=== PATIENT | male | born 1965 | race Caucasian/White ===

== ENCOUNTER → 2016-08-27 | Outpatient (REF) | payer OTHER ==
[2016-08-27 12:21] LABS: MEAN CORPUSCULAR HEMOGLOBIN 32.9 pg (27.0-33.0); MEAN CORPUSCULAR HGB CONC 33.8 g/dl (32.0-36.5); MEAN CORPUSCULAR VOLUME 97.3 fl (80.0-96.0); RED CELL DISTRIBUTION WIDTH 12.2 % (11.5-14.5); WHITE BLOOD COUNT 5.7 K/mm3 (4.0-10.0)
[2016-08-27 12:31] LABS: ALBUMIN 3.9 GM/DL (3.2-5.2); ALBUMIN/GLOBULIN RATIO 1.18 (1.00-1.93); ALKALINE PHOSPHATASE 80 U/L (45-117); ALT/SGPT 31 U/L (12-78); ANION GAP 4 MEQ/L (8-16); AST/SGOT 16 U/L (15-37); BILIRUBIN,TOTAL 0.3 MG/DL (0.2-1.0); BLOOD UREA NITROGEN 13 MG/DL (7-18); CALCIUM LEVEL 8.8 MG/DL (8.5-10.1); CARBON DIOXIDE LEVEL 28 MEQ/L (21-32); CHLORIDE LEVEL 107 MEQ/L (98-107); CHOLESTEROL LEVEL 184 MG/DL (<200); CREATININE FOR GFR 0.71 MG/DL (0.70-1.30); GLOMERULAR FILTRATION RATE > 60.0 (>56); GLUCOSE, FASTING 106 MG/DL (70-105); POTASSIUM SERUM 4.6 MEQ/L (3.5-5.1); SODIUM LEVEL 139 MEQ/L (136-145); TOTAL PROTEIN 7.2 GM/DL (6.4-8.2); TRIGLYCERIDES LEVEL 130 MG/DL (<150)
== END ==
LOC: M SFHCADAM 07:59
PROVIDERS: ATTEND Physician Assistant
DX: E78.4 Other hyperlipidemia (principal); E55.9 Vitamin D deficiency, unspecified

== ENCOUNTER → 2017-07-08 | Outpatient (REF) | payer OTHER ==
[2017-07-08 19:37] LABS: APPEARANCE, URINE HAZY (CLEAR); BACTERIA, URINE AUTO NEGATIVE (NEGATIVE); BILIRUBIN, URINE AUTO NEGATIVE (NEGATIVE); BLOOD, URINE BLOOD 1+ (NEGATIVE); CALCIUM OXALATE CRYSTALS SMALL; COLOR, URINE YELLOW (YELLOW); GLUCOSE, URINE (UA) AUTO NEGATIVE (NEGATIVE); KETONE, URINE AUTO NEGATIVE (NEGATIVE); LEUKOCYTE ESTERASE, URINE AUTO NEGATIVE (NEGATIVE); MUCUS, URINE SMALL (NEGATIVE); NITRITE, URINE AUTO NEGATIVE (NEGATIVE); PROTEIN, URINE AUTO NEGATIVE (NEGATIVE); RBC, URINE AUTO 3 /HPF (0-3); SPECIFIC GRAVITY URINE AUTO 1.023 (1.002-1.035); SQUAMOUS EPITHELIAL CELL UR AU 0 /HPF (0-6); WBC, URINE AUTO 0 /HPF (0-3)
== END ==
LOC: M SFHCADAM 18:20
DX: R58 Hemorrhage, not elsewhere classified (principal)

== ENCOUNTER → 2017-07-08 | Outpatient (REF) | payer OTHER ==
[2017-07-08 18:48] LABS: HEMATOCRIT 42.2 % (42.0-52.0); HEMOGLOBIN 14.6 g/dl (13.5-17.5); MEAN CORPUSCULAR HEMOGLOBIN 32.3 pg (27.0-33.0); MEAN CORPUSCULAR HGB CONC 34.6 g/dl (32.0-36.5); MEAN CORPUSCULAR VOLUME 93.4 fl (80.0-96.0); PLATELET COUNT, AUTOMATED 224 10^3/uL (150-450); RED BLOOD COUNT 4.52 10^6/uL (4.30-6.10); RED CELL DISTRIBUTION WIDTH 12.1 % (11.5-14.5); WHITE BLOOD COUNT 8.1 10^3/uL (4.0-10.0)
[2017-07-08 19:41] LABS: ALBUMIN 4.1 GM/DL (3.2-5.2); ALBUMIN/GLOBULIN RATIO 1.21 (1.00-1.93); ALKALINE PHOSPHATASE 89 U/L (45-117); ALT/SGPT 30 U/L (12-78); ANION GAP 7 MEQ/L (8-16); AST/SGOT 20 U/L (7-37); BILIRUBIN,TOTAL 0.2 MG/DL (0.2-1.0); BLOOD UREA NITROGEN 14 MG/DL (7-18); CALCIUM LEVEL 8.8 MG/DL (8.5-10.1); CARBON DIOXIDE LEVEL 27 MEQ/L (21-32); CHLORIDE LEVEL 107 MEQ/L (98-107); CREATININE FOR GFR 0.73 MG/DL (0.70-1.30); GLOMERULAR FILTRATION RATE > 60.0 (>56); GLUCOSE, FASTING 119 MG/DL (70-100); POTASSIUM SERUM 3.9 MEQ/L (3.5-5.1); SODIUM LEVEL 141 MEQ/L (136-145); TOTAL PROTEIN 7.5 GM/DL (6.4-8.2)
== END ==
LOC: M SFHCADAM 15:22
DX: R58 Hemorrhage, not elsewhere classified (principal); R10.2 Pelvic and perineal pain

== ENCOUNTER → 2017-07-14 | Outpatient (CLI) | payer OTHER ==
[~2017-07-14] MED LIST: ISOVUE-370 76% 100ML VIAL (Q9967) As Ordered
== END ==
LOC: M RAD 16:25
DX: R58 Hemorrhage, not elsewhere classified (principal); R10.2 Pelvic and perineal pain; K76.89 Other specified diseases of liver; K57.90 Diverticulosis of intestine, part unspecified, without perforation or abscess without bleeding
CPT/HCPCS: Q9967

== ENCOUNTER → 2017-09-01 | Outpatient (REF) | payer OTHER ==
[2017-09-01 12:56] LABS: HEMATOCRIT 45.5 % (42.0-52.0); HEMOGLOBIN 15.6 g/dl (13.5-17.5); MEAN CORPUSCULAR HEMOGLOBIN 31.9 pg (27.0-33.0); MEAN CORPUSCULAR HGB CONC 34.3 g/dl (32.0-36.5); PLATELET COUNT, AUTOMATED 235 10^3/uL (150-450); RED BLOOD COUNT 4.89 10^6/uL (4.30-6.10); RED CELL DISTRIBUTION WIDTH 12.1 % (11.5-14.5); WHITE BLOOD COUNT 6.9 10^3/uL (4.0-10.0)
[2017-09-01 13:35] LABS: ALBUMIN 4.2 GM/DL (3.2-5.2); ALKALINE PHOSPHATASE 86 U/L (45-117); ALT/SGPT 34 U/L (12-78); ANION GAP 6 MEQ/L (8-16); AST/SGOT 16 U/L (7-37); BILIRUBIN,TOTAL 0.5 MG/DL (0.2-1.0); BLOOD UREA NITROGEN 14 MG/DL (7-18); CALCIUM LEVEL 8.9 MG/DL (8.5-10.1); CARBON DIOXIDE LEVEL 28 MEQ/L (21-32); CHLORIDE LEVEL 107 MEQ/L (98-107); CHOLESTEROL LEVEL 222 MG/DL (<200); CHOLESTEROL RISK RATIO 5.414 (<5); CREATININE FOR GFR 0.77 MG/DL (0.70-1.30); GLOMERULAR FILTRATION RATE > 60.0 (>56); GLUCOSE, FASTING 93 MG/DL (70-100); HDL CHOLESTEROL 41 MG/DL (>40); LDL CHOLESTEROL 140.6 MG/DL (<100); NON-HDL-C 181 MG/DL; POTASSIUM SERUM 4.3 MEQ/L (3.5-5.1); PSA SCREENING 0.53 NG/ML (< 4.0); SODIUM LEVEL 141 MEQ/L (136-145); TOTAL PROTEIN 7.7 GM/DL (6.4-8.2); TRIGLYCERIDES LEVEL 202 MG/DL (<150)
== END ==
LOC: M SFHCADAM 09:19
DX: E78.4 Other hyperlipidemia (principal); Z12.5 Encounter for screening for malignant neoplasm of prostate

== ENCOUNTER 2017-10-06 07:43 | Day surgery (SDC) | payer OTHER ==
[~2017-10-06 07:43] MED LIST changes: -ISOVUE-370 76% 100ML VIAL (Q9967) As Ordered; +LIDOCAINE 2% INJ 100 MG/5 ML SDV (FOR ANES.) As Ordered; +PROPOFOL 200 MG/20 ML VIAL As Ordered
[2017-10-06] MEDS ORDERED: NS 1,000 ML IV (08:30)
== END 2017-10-06 09:42 | disposition home or self-care (01) ==
LOC: M OPP 07:43
DX: Z12.11 Encounter for screening for malignant neoplasm of colon (principal); Z86.010 Personal history of colon polyps; E78.5 Hyperlipidemia, unspecified; M54.9 Dorsalgia, unspecified; F17.210 Nicotine dependence, cigarettes, uncomplicated; Z79.82 Long term (current) use of aspirin; Z79.899 Other long term (current) drug therapy; Z80.7 Family history of other malignant neoplasms of lymphoid, hematopoietic and related tissues; Z80.41 Family history of malignant neoplasm of ovary
CPT/HCPCS: 45378

== ENCOUNTER → 2018-08-28 | Outpatient (REF) | payer OTHER ==
[~2018-08-28] MED LIST changes: +ASPI81TA26 PO; +ATOR1TAB19 PO; +COQ-100C2 PO; -LIDOCAINE 2% INJ 100 MG/5 ML SDV (FOR ANES.) As Ordered; -PROPOFOL 200 MG/20 ML VIAL As Ordered; +VITA400C7 PO; +VITA500T PO
[2018-08-28 12:53] LABS: HEMATOCRIT 45.6 % (42.0-52.0); HEMOGLOBIN 15.2 g/dl (13.5-17.5); MEAN CORPUSCULAR HEMOGLOBIN 31.3 pg (27.0-33.0); MEAN CORPUSCULAR HGB CONC 33.3 g/dl (32.0-36.5); MEAN CORPUSCULAR VOLUME 93.8 fl (80.0-96.0); PLATELET COUNT, AUTOMATED 217 10^3/uL (150-450); RED BLOOD COUNT 4.86 10^6/uL (4.30-6.10); WHITE BLOOD COUNT 7.1 10^3/uL (4.0-10.0)
[2018-08-28 13:02] LABS: ALBUMIN 4.3 GM/DL (3.2-5.2); ALT/SGPT 30 U/L (12-78); BILIRUBIN,TOTAL 0.3 MG/DL (0.2-1.0); BLOOD UREA NITROGEN 13 MG/DL (7-18); CALCIUM LEVEL 9.2 MG/DL (8.5-10.1); CARBON DIOXIDE LEVEL 24 MEQ/L (21-32); CHLORIDE LEVEL 107 MEQ/L (98-107); CHOLESTEROL LEVEL 209 MG/DL (<200); CREATININE FOR GFR 0.73 MG/DL (0.70-1.30); GLOMERULAR FILTRATION RATE > 60.0 (>56); GLUCOSE, FASTING 103 MG/DL (70-100); HDL CHOLESTEROL 44 MG/DL (>40); LDL CHOLESTEROL 129 MG/DL (<100); NON-HDL-C 165 MG/DL; POTASSIUM SERUM 4.2 MEQ/L (3.5-5.1); SODIUM LEVEL 140 MEQ/L (136-145); TOTAL PROTEIN 7.8 GM/DL (6.4-8.2); TRIGLYCERIDES LEVEL 181 MG/DL (<150)
[2018-08-28 13:26] LABS: TOTAL 25(OH) VITAMIN D 20.8 NG/ML (30.0-100.0)
== END ==
LOC: M SFHCADAM 08:14
PROVIDERS: ATTEND Physician Assistant
DX: F17.200 Nicotine dependence, unspecified, uncomplicated (principal); E78.49 Other hyperlipidemia; E55.9 Vitamin D deficiency, unspecified

== ENCOUNTER → 2018-08-30 | Outpatient (REF) | payer OTHER ==
[2018-08-30 18:58] LABS: CPK CREATINE PHOSPHOKINASE 158 U/L (39-308); RHEUMATOID FACTOR QUANT < 10.0 IU/ML (<15.0)
[2018-09-03 00:06] LABS: ANA (HEP2) Positive (.); Lyme Disease IgG/IgM Antibodie <0.91 ISR (0.00-0.90); Lyme Disease IgM Ab Quantitati <0.80 index (0.00-0.79)
== END ==
LOC: M SFHCADAM 16:25
PROVIDERS: ATTEND Physician Assistant
DX: M79.10 Myalgia, unspecified site (principal)

== ENCOUNTER → 2018-12-20 | Outpatient (REF) | payer OTHER ==
[2018-12-20 16:31] LABS: BASO # 0.1 10^3/uL (0.0-0.2); BASO % 1.1 % (0.0-1.0); EOS # 0.4 10^3/uL (0.0-0.5); EOS % 5.4 % (0.0-3.0); HEMATOCRIT 39.9 % (42.0-52.0); HEMOGLOBIN 13.4 g/dl (13.5-17.5); LYMPH # 2.3 10^3/uL (1.5-5.0); MEAN CORPUSCULAR HEMOGLOBIN 31.4 pg (27.0-33.0); MEAN CORPUSCULAR HGB CONC 33.6 g/dl (32.0-36.5); MEAN CORPUSCULAR VOLUME 93.4 fl (80.0-96.0); MONO # 0.7 10^3/uL (0.0-0.8); MONO % 10.7 % (0.0-5.0); NEUTROPHILS # 3.2 10^3/uL (1.5-8.5); NEUTROPHILS % 48.6 % (36.0-66.0); PLATELET COUNT, AUTOMATED 239 10^3/uL (150-450); RED BLOOD COUNT 4.27 10^6/uL (4.30-6.10); WHITE BLOOD COUNT 6.6 10^3/uL (4.0-10.0)
[2018-12-20 16:52] LABS: ERYTHROCYTE SEDIMENTATION RATE 12 mm/hr (0-20)
[2018-12-20 16:58] LABS: ALBUMIN 4.1 GM/DL (3.2-5.2); ALT/SGPT 36 U/L (12-78); BILIRUBIN,TOTAL 0.4 MG/DL (0.2-1.0); BLOOD UREA NITROGEN 14 MG/DL (7-18); C REACTIVE PROTEIN QUANTITATIV < 0.30 MG/DL (0.00-0.30); CALCIUM LEVEL 9.3 MG/DL (8.5-10.1); CARBON DIOXIDE LEVEL 29 MEQ/L (21-32); CHLORIDE LEVEL 106 MEQ/L (98-107); CREATININE FOR GFR 0.76 MG/DL (0.70-1.30); GLOMERULAR FILTRATION RATE > 60.0 (>56); GLUCOSE, FASTING 83 MG/DL (70-100); POTASSIUM SERUM 4.5 MEQ/L (3.5-5.1); SODIUM LEVEL 141 MEQ/L (136-145); TOTAL PROTEIN 7.6 GM/DL (6.4-8.2)
== END ==
LOC: M SFHCADAM 14:29
PROVIDERS: ATTEND Family Medicine
DX: R53.81 Other malaise (principal); S30.861D Insect bite (nonvenomous) of abdominal wall, subsequent encounter; W57.XXXD Bitten or stung by nonvenomous insect and other nonvenomous arthropods, subsequent encounter

== ENCOUNTER → 2019-02-12 | Outpatient (REF) | payer OTHER ==
[2019-02-12 16:56] LABS: BASO # 0.1 10^3/uL (0.0-0.2); BASO % 0.5 % (0.0-1.0); EOS # 0.2 10^3/uL (0.0-0.5); EOS % 1.3 % (0.0-3.0); HEMATOCRIT 47.9 % (42.0-52.0); HEMOGLOBIN 15.6 g/dl (13.5-17.5); LYMPH # 2.2 10^3/uL (1.5-5.0); MEAN CORPUSCULAR HEMOGLOBIN 31.4 pg (27.0-33.0); MEAN CORPUSCULAR HGB CONC 32.6 g/dl (32.0-36.5); MEAN CORPUSCULAR VOLUME 96.4 fl (80.0-96.0); MONO # 1.4 10^3/uL (0.0-0.8); MONO % 12.5 % (0.0-5.0); NEUTROPHILS # 7.3 10^3/uL (1.5-8.5); NEUTROPHILS % 65.3 % (36.0-66.0); PLATELET COUNT, AUTOMATED 224 10^3/uL (150-450); RED BLOOD COUNT 4.97 10^6/uL (4.30-6.10); WHITE BLOOD COUNT 11.2 10^3/uL (4.0-10.0)
[2019-02-12 17:32] LABS: ALBUMIN 4.2 GM/DL (3.2-5.2); ALT/SGPT 33 U/L (12-78); BILIRUBIN,TOTAL 0.9 MG/DL (0.2-1.0); BLOOD UREA NITROGEN 10 MG/DL (7-18); CALCIUM LEVEL 9.2 MG/DL (8.5-10.1); CARBON DIOXIDE LEVEL 28 MEQ/L (21-32); CHLORIDE LEVEL 101 MEQ/L (98-107); CREATININE FOR GFR 0.77 MG/DL (0.70-1.30); FREE T4 0.87 NG/DL (0.76-1.46); GLOMERULAR FILTRATION RATE > 60.0 (>56); GLUCOSE, FASTING 80 MG/DL (70-100); POTASSIUM SERUM 4.4 MEQ/L (3.5-5.1); SODIUM LEVEL 137 MEQ/L (136-145); THYROID STIMULATING HORMONE 0.845 uIU/ML (0.358-3.740); TOTAL PROTEIN 8.1 GM/DL (6.4-8.2)
== END ==
LOC: M LABDRAW1 15:21 → M LABDRWAD 15:21
PROVIDERS: ATTEND Physician Assistant
DX: R22.1 Localized swelling, mass and lump, neck (principal); R13.10 Dysphagia, unspecified

== ENCOUNTER → 2019-02-12 | Outpatient (CLI) | payer OTHER ==
--- NOTE | 2019-02-12 14:04 | REP ---
Four views neck soft tissues: 02/12/2019. Indication: Neck mass. Comparison: None. Findings: The prevertebral and additional visualized neck soft tissues are unremarkable by this technique. Multilevel cervical spine spondylosis is present most pronounced at C5/C6 and C6/C7. There is a 6 mm rounded partially calcified nodule within the right upper lung. Impression: No soft tissue neck mass or acute soft tissue abnormalities detected. CT neck soft tissues with contrast may be considered if indicated. 6 mm pulmonary nodule within the right lung. Granuloma is considered most likely, however, CT chest may be considered. Electronically Signed by Chucho Means DO 02/12/2019 01:55 P
== END ==
LOC: M ADAMS 13:21
PROVIDERS: ATTEND Physician Assistant
DX: R91.1 Solitary pulmonary nodule (principal); R13.10 Dysphagia, unspecified; R22.1 Localized swelling, mass and lump, neck

== ENCOUNTER → 2019-02-15 | Outpatient (REF) | payer OTHER ==
[2019-02-15 17:13] LABS: BASO # 0.1 10^3/uL (0.0-0.2); BASO % 0.5 % (0.0-1.0); EOS # 0.2 10^3/uL (0.0-0.5); EOS % 2.1 % (0.0-3.0); HEMATOCRIT 43.1 % (42.0-52.0); HEMOGLOBIN 13.9 g/dl (13.5-17.5); LYMPH # 1.9 10^3/uL (1.5-5.0); LYMPH % 19.7 % (24.0-44.0); MEAN CORPUSCULAR HEMOGLOBIN 30.7 pg (27.0-33.0); MEAN CORPUSCULAR HGB CONC 32.3 g/dl (32.0-36.5); MEAN CORPUSCULAR VOLUME 95.1 fl (80.0-96.0); MONO # 1.3 10^3/uL (0.0-0.8); MONO % 13.6 % (0.0-5.0); NEUTROPHILS # 6.2 10^3/uL (1.5-8.5); NEUTROPHILS % 63.7 % (36.0-66.0); PLATELET COUNT, AUTOMATED 243 10^3/uL (150-450); RED BLOOD COUNT 4.53 10^6/uL (4.30-6.10); WHITE BLOOD COUNT 9.7 10^3/uL (4.0-10.0)
== END ==
LOC: M LABDRWAD 16:27
PROVIDERS: ATTEND Physician Assistant
DX: L04.0 Acute lymphadenitis of face, head and neck (principal)

== ENCOUNTER → 2019-02-15 | Outpatient (CLI) | payer OTHER ==
[~2019-02-15] MED LIST changes: +ISOVUE-370 76% 100ML VIAL (Q9967) As Ordered ONE
--- NOTE | 2019-02-15 08:15 | REP ---
Clinical: Dysphagia. Technique: Axial noncontrast images from the thoracic inlet to the upper abdomen with coronal and sagittal re-formations. Findings: The bilateral lung ochoa are well-aerated and clear. No consolidation. No significant nodule or mass lesion. No pleural effusion. No pneumothorax. A calcified granuloma is identified in the right upper lobe. The mediastinum demonstrates atherosclerotic changes to the thoracic aorta without aneurysm. Heart and pericardium are normal. No adenopathy. Surrounding musculoskeletal structures are intact. Impression: No acute mediastinal or pleuroparenchymal process appreciated. Electronically Signed by Tavon Weston MD 02/15/2019 08:07 A
--- NOTE | 2019-02-15 08:25 | REP ---
CT neck: 02/15/2019. Indication: Neck swelling. Dysphasia. Comparison: None. Technique: Axial CT images of the neck soft tissues were obtained following IV administration of 75 ml Isovue 370. Sagittal and coronal reconstructions were provided. Findings: Somewhat small ill-defined focus of peripherally enhancing low attenuation is noted along the medial aspect of the left mandible with perimandibular soft tissue inflammatory sequelae noted. There is no osseous erosion or evidence of dental abscess. The paranasal sinuses and mastoid air cells are essentially clear. There is no ductal dilatation of the submandibular or sublingual glands. Borderline prominent left level two lymph nodes are noted. The airway is patent. There is edema within the left floor of mouth and parapharyngeal soft tissues. Bilateral pontine tonsils are present indicative of chronic inflammation. Impression: Left perimandibular cellulitis with phlegmon or early abscesses along the medial aspect/sublingual space. The airway is patent. Electronically Signed by Chucho Means DO 02/15/2019 08:17 A
== END ==
LOC: M RAD 06:48
PROVIDERS: ATTEND Physician Assistant
DX: K12.2 Cellulitis and abscess of mouth (principal); R13.10 Dysphagia, unspecified
CPT/HCPCS: 70491; 71250; Q9967

== ENCOUNTER → 2019-02-19 | Outpatient (REF) | payer OTHER ==
[~2019-02-19] MED LIST changes: -ISOVUE-370 76% 100ML VIAL (Q9967) As Ordered ONE
[2019-02-22 00:06] LABS: ANA (HEP2) Negative (.)
== END ==
LOC: M SFHCADAM 08:50
PROVIDERS: ATTEND Physician Assistant
DX: F17.211 Nicotine dependence, cigarettes, in remission (principal); E78.2 Mixed hyperlipidemia; R76.8 Other specified abnormal immunological findings in serum

== ENCOUNTER → 2021-02-18 | Outpatient (CLI) | payer OTHER ==
[~2021-02-18] MED LIST changes: +VITA-243 PO; -VITA500T PO
== END ==
LOC: M LABSMTC 13:34
PROVIDERS: ATTEND Pediatrics
DX: Z11.52 Encounter for screening for COVID-19 (principal); Z20.822 Contact with and (suspected) exposure to COVID-19
CPT/HCPCS: C9803; U0003

== ENCOUNTER 2023-07-25 09:45 | Day surgery (SDC) | payer OTHER ==
[~2023-07-25] VITALS: Ht 177.8 cm; Wt 85.7 kg
[~2023-07-25 09:45] MED LIST changes: +ASPI-226 PO; +EZET10TA21 PO; +NS 1,000 ML IV ONE; +VITA-183 PO; +VITA400C49 PO
[2023-07-25] MEDS ORDERED: propofoL 500 MG/50 ML VIAL As Ordered ONE (11:01)
[2023-07-25] MEDS ORDERED: LIDOCAINE 2% 100MG/5ML SDV (FOR ANES.) As Ordered ONE (11:01)
[2023-07-25] MEDS ORDERED: fentaNYL 100 MCG/2 ML INJECTION As Ordered ONE (11:01)
[2023-07-25 11:22] VITALS: TEMP 97.4
[2023-07-25 11:47] VITALS: BP 122/62; O2SAT 98
== END 2023-07-25 11:48 | disposition home or self-care (01) ==
LOC: M OPP 09:45
PROVIDERS: ATTEND Internal Medicine Gastroenterology
DX: K57.30 Diverticulosis of large intestine without perforation or abscess without bleeding (principal); K64.8 Other hemorrhoids; R19.4 Change in bowel habit; R14.2 Eructation; R10.13 Epigastric pain; Z79.82 Long term (current) use of aspirin; F17.200 Nicotine dependence, unspecified, uncomplicated
CPT/HCPCS: 43235; 45378; J3010